=== PATIENT | female | born 1950 | race Two or more races ===

== ENCOUNTER 2024-02-08 12:11 | Emergency (ER) | payer MEDICAID, SELFPAY ==
[2024-02-08 12:17] VITALS: BP 152/85; PULSE 88; RESP 18; TEMP 36.3; O2SAT 98; BMI 34.9
--- NOTE | 2024-02-08 12:48 | XR_ITS ---
Examination: CT brain head without contrast. 2-D sagittal coronal reconstructions Date and time of exam:February 08, 2024 1257 hours INDICATIONS: Onset dizziness today CTDI: vol (mGy):46 DLP: (mGycm):901 Technique: Multiple CT axial sections of the brain have been obtained, 5 mm slice thickness. Contrast has not been administered. 2-D sagittal, coronal reconstructions have been obtained Low dose protocols were performed. One or more of the following dose reduction techniques were used; automated exposure control, adjustment of the mA and/or KV according to patient size, use of iterative reconstruction technique. Findings: No significant ventricular enlargement. Intra-axial or extra-axial hemorrhage density is not seen. No mass effect or midline shift Basal cisterns are not remarkable. Fourth ventricle is midline. Cranial vault intact. 14 mm calcified posterior right parafalcine mass Impression: Negative for acute hemorrhage, mass effect or midline shift 14 mm calcified posterior right parafalcine mass, likely incidental meningioma Consider elective MRI brain follow-up pre and post intravenous contrast
--- NOTE | 2024-02-08 12:48 | XR_ITS ---
Examination: PA chest single view TECHNIQUE: Upright PA chest single view Exam date and time: February 08, 2024 1317 hours Comparison September 16, 2009 INDICATIONS: Dizziness vomiting today. FINDINGS: Mild prominence of ventricle No lobar pneumonia or pulmonary edema Intact osseous structures IMPRESSION: No pneumonia or pulmonary edema
--- NOTE | 2024-02-08 12:49 | PD.EDRME ---
Rapid Medical Screening Exam RME Arrival date/time: 02/08/24 12:11 73-year-old female presents to the emergency department with complaints of acute dizziness, associated with n/v that began this morning I have greeted and performed a focused initial assessment of this patient. Initial appropriate labs ordered at this time. A comprehensive ED assessment and evaluation of the patient and analysis of all test and completion of medical decision making process will be conducted by additional ED provider. Chief Complaint: Nausea/Vomiting/Diarrhea Time Seen by Provider: 02/08/24 12:26 Vital signs: Vital Signs Temperature 97.4 F 02/08/24 12:17 Pulse Rate 88 02/08/24 12:17 Respiratory Rate 18 02/08/24 12:17 Blood Pressure 152/85 H 02/08/24 12:17 Pulse Oximetry (%) 98 02/08/24 12:17 Oxygen Delivery Method Room Air 02/08/24 12:17
[2024-02-08] MEDS: MECLIZINE HCL 25 MG TABLET PO (13:08)
[2024-02-08 13:31] LABS: Basophils % (Auto) 0 % (0-2.5); Eosinophils # (Auto) 0.1 Thou/mm3 (0.0-0.5); Eosinophils % (Auto) 1 % (0-10); Hematocrit 40.8 % (36.0-46.0); Hemoglobin 13.7 g/dL (12.0-16.0); Immature Granulocytes % (Auto) 0 % (0-0); Immature Granulocytes Auto 0.02 Thou/mm3 (0.00-0.00); Lymphocytes # (Auto) 1.2 Thou/mm3 (1.0-4.8); Lymphocytes % (Auto) 14 % (10-50); Mean Corpuscular HGB Conc 33.6 g/dl (31.0-37.0); Mean Corpuscular Hemoglobin 31.1 pg (25.0-35.0); Mean Corpuscular Volume 93 fL (80-100); Monocytes # (Auto) 0.3 Thou/mm3 (0.0-0.8); Monocytes % (Auto) 4 % (0-12); Neutrophils # (Auto) 6.8 Thou/mm3 (1.8-7.7); Neutrophils % (Auto) 80 % (37-80); Nucleated Red Blood Cell % 0 /100 WBC (0); Platelet Count 345 Thou/mm3 (140-440); RDW Standard Deviation 40.8 fL (36.4-46.3); Red Blood Count 4.41 Miln/mm3 (4.00-5.20); White Blood Count 8.5 Thou/mm3 (3.6-11.0)
[2024-02-08 13:49] LABS: Partial Thromboplastin Time 26.7 Seconds (22.0-36.0); Prothrombin Time 11.3 Seconds (9.0-12.2)
[2024-02-08 13:50] LABS: B-Type Natriuretic Peptide 62 pg/mL (0-100)
[2024-02-08 14:29] LABS: Alanine Aminotransferase 13 U/L (10-49); Albumin, Serum 4.8 gm/dL (3.4-4.8); Albumin/Globulin Ratio 1.7 (1.2-2.2); Alkaline Phosphatase 106 U/L (46-116); Anion Gap 6 (7-16); Aspartate Amino Transferase 17 U/L (0-34); BUN/Creatinine Ratio 19 Ratio (12-20); Blood Urea Nitrogen 13 mg/dL (9-23); Calcium 10.7 mg/dL (8.3-10.6); Calcium (Corrected) 10.7 mg/dL (8.5-10.1); Carbon Dioxide 28.2 mMol/L (20.0-31.0); Chloride 104 mMol/L (98-107); Creatinine (Component) 0.7 mg/dL (0.6-1.3); Estimated Creatinine Clearance 71.4 mL/min (>60); Globulin 2.9 gm/dL (2.3-3.5); Glucose 114 mg/dL (74-106); Osmolality,Calculated 276 (275-295); Potassium 3.8 mMol/L (3.4-5.1); Sodium 138 mMol/L (136-145); Total Protein 7.7 gm/dL (5.7-8.2); Troponin I < 0.020 ng/mL (0.0-0.045); eGFR > 60 See Note
[2024-02-08 14:43] LABS: Bilirubin,Total 0.7 mg/dL (0.3-1.2)
--- NOTE | 2024-02-08 15:50 | PD.EDDIZZY ---
ED Dizzyness RME/HPI General Chief Complaint: Nausea/Vomiting/Diarrhea Stated Complaint: VOMITING TODAY Time Seen by Provider: 02/08/24 12:26 Arrival date/time: 02/08/24 12:11 Limitations: no limitations RME / HPI RME / HPI Narrative: 02/08/24 12:11 73-year-old female presents to the emergency department with complaints of acute dizziness, associated with n/v that began this morning I have greeted and performed a focused initial assessment of this patient. Initial appropriate labs ordered at this time. A comprehensive ED assessment and evaluation of the patient and analysis of all test and completion of medical decision making process will be conducted by additional ED provider. DR. GONSALEZ MAIN ED EVALUATION: 73 year old female with history of hypertension presents to the ED for complaint of dizziness beginning at 09:00 this morning. Described dizziness as room spinning sensation that is aggravated with head movements or changing positions. Accompanied by feeling off balance , headache, nausea and vomiting beginning at 10:00am. Denies any history of similar symptoms. Denies fevers, chills, sweats, ear pain, cough, shortness of breath, chest pain, abdominal pain, diarrhea, or urinary symptoms. Related Data Home Medications ?Medication ?Instructions ?Recorded ?Confirmed amlodipine 5 mg tablet 1 tab PO DAILY 11/26/21 11/26/21 aspirin 81 mg tablet,delayed 81 mg PO DAILY 11/26/21 11/26/21 release glyburide 5 mg-metformin 500 mg 1 tab PO DAILY 11/26/21 11/26/21 tablet lisinopril 40 mg tablet 1 tab PO DAILY 11/26/21 11/26/21 Previous Rx's ?Medication ?Instructions ?Recorded meclizine 25 mg tablet 25 mg PO QID PRN dizziness #10 tabs 02/08/24 Allergies Allergy/AdvReac Type Severity Reaction Status Date / Time No Known Allergies Allergy Verified 11/26/21 06:57 Review of Systems Review of Systems Systems Reviewed: All systems reviewed, normal except as documented Past Medical History Past Medical History CARDIAC: Positive Cardiac Disorders and Hypertension REPRODUCTIVE: Positive Previous Pregnancies (12) MUSCULOSKELETAL: Positive Musculoskeletal Disorders and Arthritis OTHER HISTORY: Positive Measles and Mumps Family History FAMILY HISTORY: Negative Family Respiratory Disorders, Family Cardiac Disorders, Family Gastrointestinal Problems, Family Cancer or Family Surgery Social History SMOKING STATUS: Never smoker SECOND HAND EXPOSURE: No ED Exam General Limitations: Present no limitations General appearance: Present alert and in no apparent distress Head Head exam: Present atraumatic, normocephalic and normal inspection Eye Eye exam: Present normal appearance, PERRL and EOMI; Absent nystagmus ENT ENT exam: Present normal exam, normal oropharynx and mucous membranes moist Neck Neck exam: Present normal inspection, full ROM and trachea midline Chest Chest inspection: Present normal inspection and symmetric chest wall rise Respiratory Respiratory exam: Present normal lung sounds bilaterally Cardiovascular Cardiovascular exam: Present regular rate, normal rhythm and normal heart sounds Abdominal Exam Abdominal exam: Present soft and normal bowel sounds Extremities Exam Extremities exam: Present normal inspection and full ROM Back Exam Back exam: Present normal inspection and full ROM Neurological Exam Neurological exam: Present alert, oriented X3 and CN II-XII intact Psychiatric Psychiatric exam: Present normal affect and normal mood Skin Skin exam: Present warm, dry, intact and normal color Course Quality Measures none Orders Category Date Time Status Bedside Blood Glucose NOW Care 02/08/24 12:48 Completed EKG (ED ONLY) *Do not use* NOW Care 02/08/24 12:[address] head/brain wo con Stat Exams 02/08/24 12:48 Completed EKG (ED Only) Stat Exams 02/08/24 12:48 Ordered XR chest 1V portable Stat Exams 02/08/24 12:48 Completed BNP [B-Type Natriuretic Peptide] Stat Lab 02/08/24 13:04 Completed CBC Stat Lab 02/08/24 13:04 Completed Comprehensive Metabolic Panel Stat Lab 02/08/24 13:04 Completed Partial Thromboplastin Time Stat Lab 02/08/24 13:04 Completed Prothrombin Time with INR Stat Lab 02/08/24 13:04 Completed Troponin I Stat Lab 02/08/24 13:04 Completed Meclizine HCl [Antivert] Med 02/08/24 12:48 Discontinued 25 mg PO X1 ONE Reevaluation(s) Reevaluation #1: Patient remains clinically stable throughout the emergency department visit. We reviewed all the results, analysis, and treatment plans. Patient is amenable to discharge. Strict return precautions were outlined. Patient was discharged in stable condition. Time: 15:30 Vital Signs Vital signs: Vital Signs Temperature 97.4 F 02/08/24 12:17 Pulse Rate 88 02/08/24 12:17 Respiratory Rate 18 02/08/24 12:17 Blood Pressure 152/85 H 02/08/24 12:17 Pulse Oximetry (%) 98 02/08/24 12:17 Oxygen Delivery Method Room Air 02/08/24 12:17 Pulse ox is 98% on room air which is adequate. Dizziness MDM Narrative MDM Narrative:: Sanam Silverman am scribing for and in the presence of Dr. Gonsalez. Patient data External records reviewed:: [facility] previous records (I reviewed admission from 11/26/2021 through 11/27/2021) Clinical information provided by:: patient Social determinants that could affect healthcare access:: none Patient has the following chronic illnesses:: Hypertension How is presenting disease/condition affected by chronic disease/condition?: exacerbated by Evaluation data The following diagnostics were reviewed and interpreted by me:: lab results and radiology exam(s) Lab and/or radiology exams considered but not ordered:: None Interpretation Summary: Ordering Physician: Carla Byrne Date of Service: 02/08/24 Procedure(s): XR chest 1V portable Accession Number(s): [id number] cc: Ambrocio Collins MD; Carla Byrne~ Examination: PA chest single view TECHNIQUE: Upright PA chest single view Exam date and time: February 08, 2024 1317 hours Comparison September 16, 2009 INDICATIONS: Dizziness vomiting today. FINDINGS: Mild prominence of ventricle No lobar pneumonia or pulmonary edema Intact osseous structures IMPRESSION: No pneumonia or pulmonary edema Dictated By: Ambrocio Collins MD Signed By: <Electronically signed by Ambrocio Collins MD in [place]> 02/08/24 1335 Ordering Physician: Carla Byrne Date of Service: 02/08/24 Procedure(s): CT head/brain wo con Accession Number(s): [id number] cc: Ambrocio Collins MD; Byrne,Carla M [employer]~ Examination: CT brain head without contrast. 2-D sagittal coronal reconstructions Date and time of exam:February 08, 2024 1257 hours INDICATIONS: Onset dizziness today CTDI: vol (mGy):46 DLP: (mGycm):901 Technique: Multiple CT axial sections of the brain have been obtained, 5 mm slice thickness. Contrast has not been administered. 2-D sagittal, coronal reconstructions have been obtained Low dose protocols were performed. One or more of the following dose reduction techniques were used; automated exposure control, adjustment of the mA and/or KV according to patient size, use of iterative reconstruction technique. Findings: No significant ventricular enlargement. Intra-axial or extra-axial hemorrhage density is not seen. No mass effect or midline shift Basal cisterns are not remarkable. Fourth ventricle is midline. Cranial vault intact. 14 mm calcified posterior right parafalcine mass Impression: Negative for acute hemorrhage, mass effect or midline shift 14 mm calcified posterior right parafalcine mass, likely incidental meningioma Consider elective MRI brain follow-up pre and post intravenous contrast Dictated By: Ambrocio Collins MD Signed By: <Electronically signed by Ambrocio Collins MD in [place]> 02/08/24 1317 Medications / Prescriptions Medications or Prescriptions considered but not ordered:: None Medication administrations:: Medication Administration History Discontinued Medications Meclizine HCl (Meclizine Hcl 25 Mg Tablet) 25 mg PO X1 ONE Stop: 02/08/24 12:49 Last Admin: 02/08/24 13:08 Dose: 25 mg Documented By: ASHLEY See above Consultations Consultation(s) initiated? (list below): No Diagnosis Dizziness Differential Diagnosis: benign paroxysmal positional vertigo, orthostatic hypotension, cerebrovascular accident and transient cerebral ischemia Most likely diagnosis given after review of the tests above:: Acute viral labyrinthitis Admission Indicated Admission indicated?: not indicated Admission Request Was there a request for admission?: No Disposition Plan Disposition Plan: Discharge Discharge Attestation Discharge Attestation: The patient and all family members were given an opportunity to ask questions and understood the discharge instructions. Discharge instructions specifically effects, indications for sooner follow up or return to the emergency department, and the expected course of current diagnosis. Patient condition: Stable Discharge Plan Plan Patient Disposition: HOME (Self Care) Patient condition on transfer: Stable Prescriptions/Referrals Prescriptions/Med Rec: New meclizine 25 mg tablet 25 mg PO QID MDD 4 PRN (Reason: dizziness) Qty: 10 0RF No Action amlodipine 5 mg tablet 1 tab PO DAILY aspirin 81 mg Tablet,Delayed Release (Dr/Ec) 81 mg PO DAILY glyburide-metformin 5-500 mg tablet 1 tab PO DAILY lisinopril 40 mg tablet 1 tab PO DAILY Referrals: David([facility]),Maninder [employer] OPERATOR [Primary Care Provider] - In 1 week Problem List Clinical Impression: Acute viral labyrinthitis Patient/Caregiver Discharge Instructions Discharge Activity: activity as tolerated Education Materials: ED Labyrinthitis Print Language: Malay Stand Alone Forms: Debora Award Info., Patient Portal Info Letter
== END 2024-02-08 16:35 | disposition home or self-care (01) ==
PROVIDERS: Nurse Practitioner Primary Care; Emergency Provider Emergency Medicine; PCP Nurse Practitioner Family
DX: H83.09 Labyrinthitis, unspecified ear (principal); R22.0 Localized swelling, mass and lump, head
CPT/HCPCS: 36415; 70450; 71045; 80053; 80307; 81001; 83880; 84484; 85025; 85610; 85730; 93005; 99284; A9270